=== PATIENT | female | born 1960 | race Caucasian/White ===

== ENCOUNTER 2019-04-22 19:39 | Emergency (ER) | payer OTHER, SELFPAY ==
[2019-04-22 19:41] VITALS: BP 158/100; PULSE 99; RESP 18; TEMP 36.4; O2SAT 97; BMI 21.1
--- NOTE | 2019-04-22 20:00 | ED.VISSUMM ---
- ER Visit Summary Date of Service: 04/22/19 Chief Complaint: Nausea and vomiting and feels dehydrated History of Present Illness: The patient is a 59 F no significant past medical or surgical history. Patient recently moved here from [place]. Family states that she is had nausea and vomiting since Tuesday. She has had very little oral intake and decreasing urination. She denies any abdominal pain or fever. No hematemesis or melena. Reportedly she drinks alcohol nearly daily. She denies any dysuria. Physical Examination: Middle-aged female actively nauseated with emesis bag. Vital signs are stable afebrile. She does not look septic or toxic. HEENT exam dry mucous membranes. Pupils round reactive light no signs of trauma to her face or scalp. Neck nontender. No lymphadenopathy. Lungs clear to auscultation bilaterally. Heart regular rhythm rate about 100 no murmur. Abdomen is soft and nontender. Normal bowel sounds no peritoneal signs. No obvious hernias or masses. No obstruction. Both the right upper and right lower quadrants are unremarkable. Patient is moving all 4 extremities. No edema. Nontender. No deformity. Normal quality assurance advisor strength. Normal dorsi plantar flexion. Back nontender. Neurologically she is awake and alert with no focal motor deficits. Test Results: CBC normal white count of 7. Hemoglobin 13. Electrolytes normal. Normal gap. Normal creatinine 0.6. No signs of dehydration. Liver enzymes slightly elevated alk phos of 229 ALT of 91 and AST of 188. Lipase normal. Alcohol level 332. Emergency Department Course and Treatment: Patient with nausea and vomiting. History of alcohol abuse. Screening labs will be obtained. She will be treated with a liter of normal saline and IV Zofran. Repeat exam at 2132 patient is doing well. No longer vomiting. Nausea resolved. Abdomen is benign. I discussed all test results with the patient and her sister. They understand that she needs alcohol counseling. Treatment Plan: Zofran prescription. Fluids and rest. Follow-up with alcohol counseling or detox. Disposition: Discharge Impression: Acute nausea and vomiting Acute alcohol intoxication Chronic alcohol abuse This note was generated with [email or web address] software. It may contain incorrect words, spelling, and punctuation that were not noted in review of the chart prior to signing ED Disposition - Plan for ED Patient: Referrals: Care Physician,No Primary [Primary Care Provider] -
[2019-04-22] MEDS: 0.9% Normal Saline 1,000 ML 1000 ML IV (20:06)
[2019-04-22] MEDS: Ondansetron 4 MG/2 ML Vial IV (20:09)
[2019-04-22 20:27] LABS: Absolute Lymphocyte Count 1.59 X10^3/ul (0.83-4.51); Absolute Neutrophil Count 5.1 X10^3/uL (2.0-7.7); Basophil# 0.03 X10^3/uL; Basophil% 0.4 % (0-1); Eosinophil# 0.08 X10^3/uL; Hematocrit 41.7 % (37-47); Hemoglobin 13.6 g/dl (12.0-15.0); Lymphocyte # 1.59 X10^3/ul (4.0); Lymphocyte % 20.6 % (19-41); Mean Corp Hgb Conc 32.6 g/gl (32-36); Mean Corpuscular Hgb 29.6 pg (27.0-32.0); Mean Corpuscular Volume 90.7 fL (81-99); Mean Platelet Vol. 9.8 fl (6.2-12.0); Monocyte# 0.85 X10^3/uL; Neutrophil # 5.14 X10^3/uL (2.7-7.7); Neutrophil % 66.9 % (47-70); Platelet Count 163 K/mm3 (150-450); RBC Distribution Width CV 16.9 % (11.6-14.6); RBC Distribution Width SD 56.1 fl (35.1-43.9); White Blood Count 7.7 K/mm3 (4.4-11.0)
[2019-04-22 20:28] LABS: POSITIVE COUNT NO; POSITIVE DIFFERENTIAL NO; POSITIVE MORPHOLOGY NO
[2019-04-22 20:43] LABS: AST(SGOT) 188 U/L (15-37); Alanine Aminotransfer ALT/SGPT 91 U/L (13-56); Albumin, Serum 4.1 g/dL (3.2-5.0); Alkaline Phosphatase 229 U/L (45-117); Anion Gap 11 (5-15); BUN 14 mg/dL (7-18); BUN/Creat Ratio 21.4 RATIO (10-20); Bilirubin, Direct 0.31 mg/dL (0.00-0.30); Calcium,Total 8.9 mg/dL (8.5-10.1); Chloride 101 mmol/L (98-107); Creatinine, Serum 0.65 mg/dL (0.55-1.02); EST Glomerular Filtration Rate 99 mL/min (>60); Est Glom Filt Rate - Afr Amer 120 mL/min (>60); Estimated Creatinine Clearance 85.93 ml/min; Globulin 3.9 g/dL (2.2-4.2); Glucose 90 mg/dL (74-106); Lipase 199 U/L (73-393); Potassium 3.5 mmol/L (3.5-5.1); Sodium Level 138 mmol/L (136-145)
[2019-04-22 21:33] VITALS: BP 117/65; PULSE 82; RESP 18; O2SAT 95
--- NOTE | 2019-04-22 21:42 | ED.DEP ---
ED Disposition - Plan for ED Patient: Disposition: Home or Assisted Living Instructions: VOMITING (8y-Adult), Alcohol Intoxication Prescriptions: Ondansetron [Zofran Odt] 4 mg PO Q8H PRN PRN #10 tab PRN Reason: Nausea Prescription Printed Referrals: Ivan Howell MD [STAFF PHYSICIAN] - As soon as possible Additional Instructions: Zofran as needed for nausea. Plenty of fluids and rest No more alcohol for at least the next 24 hours. Strongly consider alcohol detox or counseling.
[2019-04-22 21:52] VITALS: RESP 16
== END 2019-04-22 21:52 | disposition home or self-care (01) ==
PROVIDERS: Emergency Provider Emergency Medicine
DX: F10.129 Alcohol abuse with intoxication, unspecified (principal); R11.2 Nausea with vomiting, unspecified; Z72.0 Tobacco use; Y90.8 Blood alcohol level of 240 mg/100 ml or more
CPT/HCPCS: 80048; 80076; 80320; 83690; 85025; 96361; 96374; 99283; J7030; G0480; J2405